=== PATIENT | male | born 1965 | race Caucasian/White ===

== ENCOUNTER 2019-12-25 12:17 | Emergency (ER) | payer OTHER ==
[~2019-12-25] VITALS: Ht 180.3 cm; Wt 88.6 kg
[2019-12-25] MEDS ORDERED: KEFLEX500 MG PO (12:57)
[2019-12-25 13:20] VITALS: BP 102/73
== END 2019-12-25 13:18 | disposition home or self-care (01) | DRG 605 ==
LOC: ED 12:17
PROC: 0HQGXZZ Repair Left Hand Skin, External Approach (ICD-10-PCS; principal; 2019-12-25)
DX: S61.412A Laceration without foreign body of left hand, initial encounter (principal); R55 Syncope and collapse; W26.8XXA Contact with other sharp object(s), not elsewhere classified, initial encounter